=== PATIENT | female | born 1995 | race Caucasian/White ===

== ENCOUNTER 2020-05-09 15:08 | Emergency (ER) | payer BC, SELFPAY ==
[~2020-05-09] VITALS: Ht 152.4 cm; Wt 59.0 kg
[2020-05-09 15:08] VITALS: Ht 152.4 cm; Wt 59.0 kg
[2020-05-09 16:53] VITALS: BP 140/76
== END 2020-05-09 16:53 | disposition home or self-care (01) ==
LOC: ED 15:08
DX: J02.9 Acute pharyngitis, unspecified (principal); R51 Headache; M79.10 Myalgia, unspecified site; Z20.828 Contact with and (suspected) exposure to other viral communicable diseases; Z88.2 Allergy status to sulfonamides
CPT/HCPCS: U0003-CS